=== PATIENT | female | born 1970 | race Caucasian/White ===

== ENCOUNTER 2018-07-24 20:19 | Emergency (ER) | payer OTHER ==
[2018-07-24] MEDS: ACETAMINOPHEN 500 MG TAB PO (22:22)
== END 2018-07-24 23:22 | disposition home or self-care (01) ==
LOC: FTE 23:22
DX: S52.101A Unspecified fracture of upper end of right radius, initial encounter for closed fracture (principal); S52.021A Displaced fracture of olecranon process without intraarticular extension of right ulna, initial encounter for closed fracture; I10 Essential (primary) hypertension; W01.0XXA Fall on same level from slipping, tripping and stumbling without subsequent striking against object, initial encounter; Y92.9 Unspecified place or not applicable
CPT/HCPCS: 29105; 73060-RT; 73090-RT; 99283-25

== ENCOUNTER 2019-05-25 02:00 | Emergency (ER) | payer OTHER ==
[2019-05-25] MEDS: SOD CHLORIDE 0.9% 1,000 ML IV (02:40)
== END 2019-05-25 03:40 | disposition home or self-care (01) ==
LOC: E/R 02:00
DX: E86.0 Dehydration (principal)
CPT/HCPCS: 93005; 99284-25